=== PATIENT | male | born 1955 | race Caucasian/White ===

== ENCOUNTER 2021-02-01 08:30 | Inpatient (IN) | payer MEDICARE, OTHER ==
[~2021-02-01] VITALS: Ht 178 cm; Wt 81.0 kg
[~2021-02-01 08:30] MED LIST: ASPIRIN EC81 MG PO; LANSOPRAZOLE30 M1 PO; LIPITOR20 M1 PO; LOPRESSOR25 MG PO; PLAVIX75 MG PO; REVATIO 20MG TA20 MG PO
--- NOTE | 2021-02-08 16:28 | NUR ---
Medicare part a+B, BLUE CROSS OTHER, left reverse total shoulder replacement, no needs at this time DME or appts,
[2021-02-09 05:44] LABS: BASOPHIL 0.2 % (0-2); EOSINOPHIL 0.2 % (0-7); HCT 35.1 % (42.0-52.0); HGB 11.8 g/dl (13.2-18.0); LYMPHOCYTE 10.1 % (15-48); MCH 33.3 pg (25.0-31.0); MCHC 33.6 g/dL (32.0-36.0); MCV 99.2 fL (78.0-100.0); MONOCYTE 10.8 % (0-12); MPV 11.6 fL (6.0-9.5); NEUTROPHIL 78.1 % (41-80); NRBC 0; PLT 204 K/uL (150-400); RBC 3.54 M/uL (4.70-6.00); WBC 17.9 K/uL (4.0-10.5)
[2021-02-09 06:08] LABS: BUN/CREAT RATIO (CALC) 22.2 RATIO; CREATININE 0.9 mg/dL (0.67-1.17); POTASSIUM 4.6 mmol/L (3.5-5.1)
[2021-02-09] MEDS ORDERED: OXYCODONE-ACET1 EAC1 PO (09:16)
[2021-02-09] MEDS ORDERED: FEOSOL325 MG PO (09:16)
--- NOTE | 2021-02-09 11:12 | NUR ---
PATIENT DISCHARGED AFTER IV ANTIBIOTIC COMPLETE. PAIN MEDICATION GIVEN PRIOR TO D/C. DISCUSSED DISCHARGE INSTRUCTIONS/APPOINTMENTS WITH PATIENT AND . IV REMOVED. PATIENT IN STABLE CONIDITION. POLAR PACK TAKEN HOME. D/C HOME WITH
== END 2021-02-09 11:00 | disposition home or self-care (01) | DRG 483 ==
LOC: FMS 08:30 → FSDC 02-08 11:04 → FMS 02-08 11:04
PROVIDERS: ADMIT Legal Medicine
PROC: 0RRK00Z Replacement of Left Shoulder Joint with Reverse Ball and Socket Synthetic Substitute, Open Approach (ICD-10-PCS; principal; 2021-02-08 13:05)
DX: M19.012 Primary osteoarthritis, left shoulder (principal); I10 Essential (primary) hypertension; E78.5 Hyperlipidemia, unspecified; M75.102 Unspecified rotator cuff tear or rupture of left shoulder, not specified as traumatic; Z20.822 Contact with and (suspected) exposure to COVID-19; G47.33 Obstructive sleep apnea (adult) (pediatric); I25.10 Atherosclerotic heart disease of native coronary artery without angina pectoris; I25.2 Old myocardial infarction; Z95.5 Presence of coronary angioplasty implant and graft; Z90.49 Acquired absence of other specified parts of digestive tract
CPT/HCPCS: 36415; 73020; 80048; 85025; 86850; 86900; 86901; 94010; 94762; 97162; 97166; 97530-GP; 97535; C1713; C1776; J0171; J0697; J1100; J1885; J2250; J2270; J2405; J2704; J2710; J2795; J3010; J7120

== ENCOUNTER 2022-01-03 08:28 | Day surgery (SDC) | payer MEDICARE, OTHER ==
[~2022-01-03] VITALS: Ht 178 cm; Wt 81.0 kg
[~2022-01-03 08:28] MED LIST changes: +CELECOXIB200 MG PO; +FEOSOL325 MG PO; +METOPROLOL SUCC25 MG PO; +OXYCODONE-ACET1 EAC1 PO; +VITAMIN B122500 MC1 PO
[2022-01-04 06:21] LABS: BASOPHIL 0.2 % (0-2); EOSINOPHIL 0.2 % (0-7); HCT 38.6 % (42.0-52.0); HGB 12.7 g/dl (13.2-18.0); LYMPHOCYTE 13.2 % (15-48); MCH 33.1 pg (25.0-31.0); MCHC 32.9 g/dL (32.0-36.0); MCV 100.5 fL (78.0-100.0); MONOCYTE 12.2 % (0-12); MPV 11.6 fL (6.0-9.5); NEUTROPHIL 73.9 % (41-80); NRBC 0; PLT 188 K/uL (150-400); RBC 3.84 M/uL (4.70-6.00); RDW 13.4 % (11.5-14.0); WBC 14.5 K/uL (4.0-10.5)
[2022-01-04 06:53] LABS: BUN/CREAT RATIO (CALC) 24.2 RATIO; CREATININE 0.95 mg/dL (0.67-1.17); POTASSIUM 4.1 mmol/L (3.5-5.1)
[2022-01-04] MEDS ORDERED: FEOSOL325 MG PO (08:34)
[2022-01-04] MEDS ORDERED: OXYCODONE-ACET1 EAC1 PO (08:34)
== END 2022-01-04 10:20 | disposition home or self-care (01) ==
LOC: FAS 08:28 → EDSTATUS 08:30 → FAS 08:30 → FMS 12:28 → FAS 01-04 10:20
PROVIDERS: Legal Medicine
DX: M75.101 Unspecified rotator cuff tear or rupture of right shoulder, not specified as traumatic (principal); M12.811 Other specific arthropathies, not elsewhere classified, right shoulder; I10 Essential (primary) hypertension; E78.5 Hyperlipidemia, unspecified; I25.10 Atherosclerotic heart disease of native coronary artery without angina pectoris; Z95.5 Presence of coronary angioplasty implant and graft; Z96.612 Presence of left artificial shoulder joint; Z98.890 Other specified postprocedural states; Z79.01 Long term (current) use of anticoagulants; Z79.82 Long term (current) use of aspirin
CPT/HCPCS: 36415; 73020; 80048; 85025; 86850; 86900; 86901; 94010; 94762; 97162; 97530-GP; C1713; C1776; J0171; J0697; J1100; J1885; J2250; J2270; J2405; J2704; J2710; J2795; J3010; J7120